=== PATIENT | male | born 1995 | race African-American/Black ===

== ENCOUNTER 2022-02-05 05:08 | Emergency (ER) | payer SELFPAY ==
[2022-02-05] MEDS ORDERED: levETIRAcetam 1,500 MG in Sodium Chloride 0.9% 100 ML IV STA (05:35)
[2022-02-05] MEDS ORDERED: LORazepam 2 MG/ML SDV IVPUSH STA (05:35)
[2022-02-05] MEDS ORDERED: Acetaminophen 325 MG Tab PO ONE (05:37)
== END 2022-02-05 07:20 | disposition home or self-care (01) ==
LOC: JD.ED 05:08
DX: G40.909 Epilepsy, unspecified, not intractable, without status epilepticus (principal); E66.9 Obesity, unspecified; Z68.42 Body mass index [BMI] 45.0-49.9, adult
CPT/HCPCS: 36415; 70450; 80053; 80307; 83735; 84100; 85025; 96365; 96375; 99285; A9270; J1953; J2060; 99284